=== PATIENT | male | born 1970 | race Caucasian/White ===

== ENCOUNTER 2022-04-02 01:51 | Outpatient (CLI) | payer OTHER, SELFPAY ==
[2022-04-02 09:58] LABS: Abs Immature Grans 0.01 10^3/uL (0.0-0.06); Absolute Basophil Count 0.05 10^3/uL (0.0-0.2); Absolute Eosinophil Count 0.08 10^3/uL (0.0-0.7); Absolute Lymphocyte Count 0.37 10^3/uL (1.2-3.4); Absolute Monocyte Count 0.24 10^3/uL (0.1-0.8); Absolute Neutrophil Count 3.21 10^3/uL (1.2-6.7); Basophils % 1.3; HGB 14.4 g/dL (13.5-17.5); Immature Grans % 0.3; Lymphocytes % 9.3; MCH 35.7 pg (27.0-33.0); MCV 99 fL (80-95); MPV 9.6 fL (8.0-11.0); Monocytes % 6.1; Platelet Count 149 10^3/uL (130-400); RBC 4.03 10^6/uL (4.36-5.78); RDW-SD 43.8 fL; WBC 3.96 10^3/uL (4.4-10.8)
[2022-04-02 10:23] LABS: ALT 26 U/L (16-63); AST 15 U/L (15-37); Albumin 3.7 g/dL (3.4-5.0); Alkaline Phosphatase 401 U/L (46-116); Anion Gap 4.1 mmol/L (3-11); BUN 16 mg/dL (7-18); Bilirubin, Total 1.7 mg/dL (0.2-1.0); CO2 29.9 mmol/L (21.0-32.0); CREATININE 1.2 mg/dL (0.70-1.30); Calcium 8.8 mg/dL (8.5-10.1); Chloride 106 mmol/L (98-107); Glucose 67 mg/dL (74-106); LDH 134 U/L (85-227); Potassium 4.4 mmol/L (3.5-5.1); Sodium 140 mmol/L (136-145); Total Protein 6.4 g/dL (6.4-8.2)
[2022-04-03 09:00] LABS: IgA 20 mg/dL (85-499); IgG 569 mg/dL (610-1,616); IgM <12 mg/dL (35-242)
[2022-04-08 09:35] LABS: Immunotyping, Serum (See Note)
[2022-04-08 13:03] LABS: Albumin 66.9 % (55.8-66.1); Albumin g/dL 4.1 g/dL (3.6-5.2); Comment (See Note); Total Protein 6.1 g/dL (6.3-8.2)
== END 2022-04-02 01:52 | disposition home or self-care (01) ==
PROVIDERS: Visit Provider Internal Medicine Hematology & Oncology
DX: C90.01 Multiple myeloma in remission (principal)
CPT/HCPCS: 36415; 80053; 82784; 83615; 84165; 85025; 86320

== ENCOUNTER 2022-04-09 02:43 | Outpatient (CLI) | payer OTHER, SELFPAY ==
[2022-04-09 09:26] LABS: Abs Immature Grans 0.03 10^3/uL (0.0-0.06); Absolute Basophil Count 0.02 10^3/uL (0.0-0.2); Absolute Eosinophil Count 0.18 10^3/uL (0.0-0.7); Absolute Lymphocyte Count 0.36 10^3/uL (1.2-3.4); Absolute Neutrophil Count 3.86 10^3/uL (1.2-6.7); Basophils % 0.4; Eosinophils % 3.8; HCT 38.9 % (40.0-50.0); HGB 13.8 g/dL (13.5-17.5); Immature Grans % 0.6; Lymphocytes % 7.6; MCH 34.9 pg (27.0-33.0); MCHC 35.5 % (32.0-36.0); MCV 99 fL (80-95); MPV 11.4 fL (8.0-11.0); Monocytes % 6.3; Neutrophils % 81.3; RBC 3.95 10^6/uL (4.36-5.78); RDW 11.9 % (11.8-14.1); RDW-SD 42.9 fL; WBC 4.75 10^3/uL (4.4-10.8)
[2022-04-09 09:41] LABS: ALT 26 U/L (16-63); AST 11 U/L (15-37); Albumin 3.5 g/dL (3.4-5.0); Alkaline Phosphatase 162 U/L (46-116); Anion Gap 4.4 mmol/L (3-11); BUN 16 mg/dL (7-18); Bilirubin, Total 2.1 mg/dL (0.2-1.0); CO2 30.6 mmol/L (21.0-32.0); CREATININE 1.3 mg/dL (0.70-1.30); Calcium 8.9 mg/dL (8.5-10.1); Chloride 104 mmol/L (98-107); Estimated GFR 58.67 (mL/min/1.73m2); Glucose 87 mg/dL (74-106); LDH 119 U/L (85-227); Potassium 4.4 mmol/L (3.5-5.1); Sodium 139 mmol/L (136-145); Total Protein 6.3 g/dL (6.4-8.2)
[2022-04-09 09:47] LABS: Diff Comment Diff Reviewed; Platelet Count 82 10^3/uL (130-400); RBC Morphology Normal
[2022-04-10 09:23] LABS: Kappa Free Light Chain 0.45 mg/dL (0.33-1.94); Lambda Free Light Chain <0.44 mg/dL (0.57-2.63)
[2022-04-10 09:36] LABS: IgA 17 mg/dL (85-499); IgG 539 mg/dL (610-1,616); IgM <12 mg/dL (35-242)
[2022-04-10 15:45] LABS: Albumin 65.4 % (55.8-66.1); Albumin g/dL 3.9 g/dL (3.6-5.2); Comment (See Note)
[2022-04-10 16:57] LABS: Immunotyping, Serum (See Note)
== END 2022-04-09 02:44 | disposition home or self-care (01) ==
LOC: LBO 02:43
PROVIDERS: Visit Provider Internal Medicine Hematology & Oncology
DX: C90.01 Multiple myeloma in remission (principal)
CPT/HCPCS: 36415; 80053; 82784; 86850; 86900; 86901; 83615; 83883; 84165; 85025; 86320; 86870

== ENCOUNTER 2022-04-16 03:22 | Outpatient (CLI) | payer OTHER, SELFPAY ==
[2022-04-16 08:38] LABS: Abs Immature Grans 0.03 10^3/uL (0.0-0.06); Absolute Basophil Count 0.02 10^3/uL (0.0-0.2); Absolute Eosinophil Count 0.24 10^3/uL (0.0-0.7); Absolute Lymphocyte Count 0.42 10^3/uL (1.2-3.4); Absolute Monocyte Count 0.53 10^3/uL (0.1-0.8); Absolute Neutrophil Count 2.98 10^3/uL (1.2-6.7); Basophils % 0.5; Eosinophils % 5.7; HGB 13.1 g/dL (13.5-17.5); Immature Grans % 0.7; MCH 34.7 pg (27.0-33.0); MCHC 35.4 % (32.0-36.0); MCV 98 fL (80-95); MPV 11.6 fL (8.0-11.0); Monocytes % 12.6; Neutrophils % 70.5; RBC 3.78 10^6/uL (4.36-5.78); RDW 12.2 % (11.8-14.1); RDW-SD 43.4 fL; WBC 4.22 10^3/uL (4.4-10.8)
[2022-04-16 08:53] LABS: Basophilic Stippling Present; Diff Comment Diff Reviewed; Platelet Count 80 10^3/uL (130-400)
[2022-04-16 08:56] LABS: ALT 34 U/L (16-63); AST 12 U/L (15-37); Albumin 3.4 g/dL (3.4-5.0); Alkaline Phosphatase 99 U/L (46-116); Anion Gap 4.2 mmol/L (3-11); BUN 15 mg/dL (7-18); Bilirubin, Total 1.9 mg/dL (0.2-1.0); CO2 29.8 mmol/L (21.0-32.0); CREATININE 1.2 mg/dL (0.70-1.30); Calcium 8.6 mg/dL (8.5-10.1); Chloride 108 mmol/L (98-107); Glucose 75 mg/dL (74-106); LDH 113 U/L (85-227); Magnesium 2.2 mg/dL (1.8-2.4); Potassium 4.2 mmol/L (3.5-5.1); Sodium 142 mmol/L (136-145)
[2022-04-17 09:28] LABS: IgA 15 mg/dL (85-499); IgG 497 mg/dL (610-1,616); IgM <12 mg/dL (35-242); Kappa Free Light Chain 0.46 mg/dL (0.33-1.94); Lambda Free Light Chain <0.44 mg/dL (0.57-2.63)
[2022-04-17 16:06] LABS: Albumin 67.3 % (55.8-66.1); Albumin g/dL 3.8 g/dL (3.6-5.2); Comment (See Note); Total Protein 5.7 g/dL (6.3-8.2)
[2022-04-23 10:32] LABS: Immunotyping, Serum (See Note)
== END 2022-04-16 03:23 | disposition home or self-care (01) ==
LOC: LBO 03:22
PROVIDERS: Visit Provider Internal Medicine Hematology & Oncology
DX: C90.01 Multiple myeloma in remission (principal); Z94.81 Bone marrow transplant status; M89.8X8 Other specified disorders of bone, other site
CPT/HCPCS: 36415; 80053; 82784; 83615; 83735; 83883; 84165; 85025; 86320

== ENCOUNTER 2022-08-20 02:47 | Outpatient (CLI) | payer OTHER, SELFPAY ==
[2022-08-20 13:43] LABS: Absolute Basophil Count 0.03 10^3/uL (0.0-0.2); Absolute Eosinophil Count 0.13 10^3/uL (0.0-0.7); Absolute Lymphocyte Count 0.62 10^3/uL (1.2-3.4); Absolute Monocyte Count 0.37 10^3/uL (0.1-0.8); Absolute Neutrophil Count 1.89 10^3/uL (1.2-6.7); Eosinophils % 4.3; HCT 36.6 % (40.0-50.0); HGB 13.1 g/dL (13.5-17.5); Lymphocytes % 20.4; MCHC 35.8 % (32.0-36.0); MCV 103 fL (80-95); Monocytes % 12.2; Neutrophils % 62.1; Platelet Count 122 10^3/uL (130-400); RBC 3.54 10^6/uL (4.36-5.78); RDW 12.8 % (11.8-14.1); RDW-SD 49.3 fL; WBC 3.04 10^3/uL (4.4-10.8)
[2022-08-20 13:53] LABS: ALT 23 U/L (16-63); AST 18 U/L (15-37); Albumin 3.7 g/dL (3.4-5.0); Alkaline Phosphatase 61 U/L (46-116); Anion Gap 5.5 mmol/L (3-11); BUN 17 mg/dL (7-18); Bilirubin, Total 2.1 mg/dL (0.2-1.0); CO2 30.5 mmol/L (21.0-32.0); CREATININE 1.3 mg/dL (0.70-1.30); Calcium 8.7 mg/dL (8.5-10.1); Chloride 107 mmol/L (98-107); Estimated GFR 67.34 (mL/min/1.73m2); Glucose 72 mg/dL (74-106); Potassium 3.6 mmol/L (3.5-5.1); Sodium 143 mmol/L (136-145); Total Protein 6.3 g/dL (6.4-8.2)
[2022-08-21 10:14] LABS: IgA 35 mg/dL (85-499); IgG 408 mg/dL (610-1616); IgM <12 mg/dL (35-242); Kappa Free Light Chain 0.73 mg/dL (0.33-1.94); Lambda Free Light Chain <0.44 mg/dL (0.57-2.63)
[2022-08-22 14:48] LABS: Albumin 69.3 % (55.8-66.1); Comment (See Note); Total Protein 5.7 g/dL (6.3-8.2)
[2022-08-22 16:33] LABS: Immunotyping, Serum (See Note)
== END 2022-08-20 02:48 | disposition home or self-care (01) ==
LOC: LBO 02:47
PROVIDERS: Visit Provider Nurse Practitioner Adult Health
DX: C90.01 Multiple myeloma in remission (principal)
CPT/HCPCS: 36415; 80053; 82784; 83883; 84165; 85025; 86320

== ENCOUNTER 2023-03-18 12:32 | Outpatient (CLI) | payer OTHER, SELFPAY ==
[2023-03-18 11:08] LABS: Abs Immature Grans 0.01 10^3/uL (0.0-0.06); Absolute Basophil Count 0.03 10^3/uL (0.0-0.2); Absolute Eosinophil Count 0.08 10^3/uL (0.0-0.7); Absolute Lymphocyte Count 0.82 10^3/uL (1.2-3.4); Absolute Monocyte Count 0.35 10^3/uL (0.1-0.8); Absolute Neutrophil Count 1.89 10^3/uL (1.2-6.7); Basophils % 0.9; Eosinophils % 2.5; HCT 39.3 % (40.0-50.0); HGB 14.2 g/dL (13.5-17.5); Immature Grans % 0.3; Lymphocytes % 25.8; MCH 36.2 pg (27.0-33.0); MCHC 36.1 % (32.0-36.0); MCV 100 fL (80-95); MPV 9.9 fL (8.0-11.0); Neutrophils % 59.5; Platelet Count 124 10^3/uL (130-400); RBC 3.92 10^6/uL (4.36-5.78); RDW 12.8 % (11.8-14.1); RDW-SD 47.4 fL; WBC 3.18 10^3/uL (4.4-10.8)
[2023-03-18 11:28] LABS: ALT 34 U/L (16-63); AST 16 U/L (15-37); Albumin 3.5 g/dL (3.4-5.0); Alkaline Phosphatase 62 U/L (46-116); Anion Gap 4.9 mmol/L (3-11); BUN 17 mg/dL (7-18); Bilirubin, Total 2.2 mg/dL (0.2-1.0); CO2 29.1 mmol/L (21.0-32.0); CREATININE 1.1 mg/dL (0.70-1.30); Calcium 8.8 mg/dL (8.5-10.1); Chloride 108 mmol/L (98-107); Estimated GFR 81.78 (mL/min/1.73m2); Glucose 104 mg/dL (74-106); Potassium 4.1 mmol/L (3.5-5.1); Sodium 142 mmol/L (136-145); Total Protein 6.2 g/dL (6.4-8.2)
[2023-03-19 09:34] LABS: IgA 69 mg/dL (85-499); IgG 464 mg/dL (610-1616); IgM <12 mg/dL (35-242); Kappa Free Light Chain 0.61 mg/dL (0.33-1.94); Lambda Free Light Chain <0.44 mg/dL (0.57-2.63)
[2023-03-19 14:57] LABS: Albumin 67.8 % (55.8-66.1); Albumin g/dL 3.9 g/dL (3.6-5.2); Comment (See Note); Total Protein 5.8 g/dL (6.3-8.2)
[2023-03-19 16:28] LABS: Immunotyping, Serum (See Note)
== END 2023-03-18 12:33 | disposition home or self-care (01) ==
LOC: LBO 12:32
PROVIDERS: Visit Provider Nurse Practitioner Adult Health
DX: C90.01 Multiple myeloma in remission (principal)
CPT/HCPCS: 36415; 80053; 82784; 83883; 84165; 85025; 86320

== ENCOUNTER 2023-04-01 13:54 | Outpatient (CLI) | payer OTHER, SELFPAY ==
[2023-04-01 13:56] LABS: Abs Immature Grans 0.02 10^3/uL (0.0-0.06); Absolute Basophil Count 0.03 10^3/uL (0.0-0.2); Absolute Eosinophil Count 0.16 10^3/uL (0.0-0.7); Absolute Monocyte Count 0.74 10^3/uL (0.1-0.8); Absolute Neutrophil Count 4.33 10^3/uL (1.2-6.7); Basophils % 0.5; Eosinophils % 2.6; HCT 38.7 % (40.0-50.0); HGB 13.7 g/dL (13.5-17.5); Immature Grans % 0.3; Lymphocytes % 14.6; MCH 35.5 pg (27.0-33.0); MCHC 35.4 % (32.0-36.0); MCV 100 fL (80-95); MPV 10.2 fL (8.0-11.0); Platelet Count 118 10^3/uL (130-400); RBC 3.86 10^6/uL (4.36-5.78); RDW 12.3 % (11.8-14.1); RDW-SD 45.5 fL; WBC 6.18 10^3/uL (4.4-10.8)
[2023-04-01 14:23] LABS: ALT 50 U/L (16-63); AST 22 U/L (15-37); Albumin 3.5 g/dL (3.4-5.0); Alkaline Phosphatase 73 U/L (46-116); Anion Gap 7.5 mmol/L (3-11); BUN 11 mg/dL (7-18); Bilirubin, Total 1.6 mg/dL (0.2-1.0); CO2 27.5 mmol/L (21.0-32.0); CREATININE 1.1 mg/dL (0.70-1.30); Chloride 106 mmol/L (98-107); Estimated GFR 81.78 (mL/min/1.73m2); Glucose 95 mg/dL (74-106); Potassium 3.9 mmol/L (3.5-5.1); Sodium 141 mmol/L (136-145); Total Protein 6.3 g/dL (6.4-8.2)
[2023-04-03 10:10] LABS: IgA 60 mg/dL (85-499); IgG 425 mg/dL (610-1616); IgM <12 mg/dL (35-242); Kappa Free Light Chain 0.73 mg/dL (0.33-1.94); Lambda Free Light Chain <0.44 mg/dL (0.57-2.63)
[2023-04-03 14:49] LABS: Albumin 66.1 % (55.8-66.1); Albumin g/dL 3.9 g/dL (3.6-5.2); Total Protein 5.9 g/dL (6.3-8.2)
== END 2023-04-01 13:55 | disposition home or self-care (01) ==
LOC: LBO 13:57
PROVIDERS: Visit Provider Nurse Practitioner Adult Health
DX: C90.01 Multiple myeloma in remission (principal)
CPT/HCPCS: 36415; 80053; 82784; 83883; 84165; 85025

== ENCOUNTER 2023-04-15 09:40 | Outpatient (CLI) | payer OTHER, SELFPAY ==
[2023-04-15 09:37] LABS: Abs Immature Grans 0.01 10^3/uL (0.0-0.06); Absolute Basophil Count 0.04 10^3/uL (0.0-0.2); Absolute Eosinophil Count 0.09 10^3/uL (0.0-0.7); Absolute Lymphocyte Count 1.06 10^3/uL (1.2-3.4); Absolute Monocyte Count 0.35 10^3/uL (0.1-0.8); Absolute Neutrophil Count 2.59 10^3/uL (1.2-6.7); Eosinophils % 2.2; HGB 15.4 g/dL (13.5-17.5); Immature Grans % 0.2; Lymphocytes % 25.6; MCH 36.3 pg (27.0-33.0); MCHC 36.7 % (32.0-36.0); MCV 99 fL (80-95); MPV 10.1 fL (8.0-11.0); Monocytes % 8.5; Neutrophils % 62.5; Platelet Count 145 10^3/uL (130-400); RBC 4.24 10^6/uL (4.36-5.78); RDW 12.7 % (11.8-14.1); RDW-SD 45.8 fL; WBC 4.14 10^3/uL (4.4-10.8)
[2023-04-15 09:52] LABS: ALT 31 U/L (16-63); AST 16 U/L (15-37); Albumin 3.7 g/dL (3.4-5.0); Alkaline Phosphatase 64 U/L (46-116); BUN 20 mg/dL (7-18); Bilirubin, Total 2.1 mg/dL (0.2-1.0); CREATININE 1.3 mg/dL (0.70-1.30); Calcium 9.3 mg/dL (8.5-10.1); Chloride 106 mmol/L (98-107); Estimated GFR 66.93 (mL/min/1.73m2); Glucose 68 mg/dL (74-106); Potassium 4.1 mmol/L (3.5-5.1); Sodium 143 mmol/L (136-145); Total Protein 6.2 g/dL (6.4-8.2)
[2023-04-16 10:41] LABS: IgA 66 mg/dL (85-499); IgG 476 mg/dL (610-1616); IgM <12 mg/dL (35-242); Kappa Free Light Chain 0.77 mg/dL (0.33-1.94); Lambda Free Light Chain <0.44 mg/dL (0.57-2.63)
[2023-04-16 13:54] LABS: Albumin g/dL 4.1 g/dL (3.6-5.2); Total Protein 6.1 g/dL (6.3-8.2)
== END 2023-04-15 09:41 | disposition home or self-care (01) ==
LOC: LBO 09:40
PROVIDERS: Visit Provider Nurse Practitioner Adult Health
DX: C90.01 Multiple myeloma in remission (principal)
CPT/HCPCS: 36415; 80053; 82784; 83883; 84165; 85025

== ENCOUNTER 2023-04-29 14:18 | Outpatient (CLI) | payer OTHER, SELFPAY ==
[2023-04-29 13:55] LABS: Abs Immature Grans 0.02 10^3/uL (0.0-0.06); Absolute Basophil Count 0.02 10^3/uL (0.0-0.2); Absolute Eosinophil Count 0.15 10^3/uL (0.0-0.7); Absolute Lymphocyte Count 0.77 10^3/uL (1.2-3.4); Absolute Monocyte Count 0.52 10^3/uL (0.1-0.8); Absolute Neutrophil Count 3.98 10^3/uL (1.2-6.7); Basophils % 0.4; Eosinophils % 2.7; HGB 14.3 g/dL (13.5-17.5); Immature Grans % 0.4; Lymphocytes % 14.1; MCH 35.3 pg (27.0-33.0); MCHC 34.9 % (32.0-36.0); MCV 101 fL (80-95); MPV 10.8 fL (8.0-11.0); Monocytes % 9.5; Neutrophils % 72.9; Platelet Count 119 10^3/uL (130-400); RBC 4.05 10^6/uL (4.36-5.78); RDW 12.5 % (11.8-14.1); RDW-SD 46.9 fL; WBC 5.46 10^3/uL (4.4-10.8)
[2023-04-29 14:10] LABS: ALT 31 U/L (16-63); AST 12 U/L (15-37); Albumin 3.5 g/dL (3.4-5.0); Alkaline Phosphatase 64 U/L (46-116); Anion Gap 5.4 mmol/L (3-11); BUN 13 mg/dL (7-18); Bilirubin, Total 1.8 mg/dL (0.2-1.0); CO2 31.6 mmol/L (21.0-32.0); CREATININE 1.3 mg/dL (0.70-1.30); Calcium 8.6 mg/dL (8.5-10.1); Chloride 107 mmol/L (98-107); Estimated GFR 66.93 (mL/min/1.73m2); Glucose 63 mg/dL (74-106); Potassium 3.8 mmol/L (3.5-5.1); Sodium 144 mmol/L (136-145); Total Protein 6.1 g/dL (6.4-8.2)
[2023-04-30 09:59] LABS: IgA 64 mg/dL (85-499); IgG 452 mg/dL (610-1616); IgM 23 mg/dL (35-242); Kappa Free Light Chain 0.91 mg/dL (0.33-1.94); Lambda Free Light Chain <0.44 mg/dL (0.57-2.63)
[2023-04-30 13:45] LABS: Albumin g/dL 4.1 g/dL (3.6-5.2)
== END 2023-04-29 14:19 | disposition home or self-care (01) ==
LOC: LBO 14:19
PROVIDERS: Visit Provider Nurse Practitioner Adult Health
DX: C90.01 Multiple myeloma in remission (principal)
CPT/HCPCS: 36415; 80053; 82784; 83883; 84165; 85025

== ENCOUNTER 2023-09-30 10:27 | Outpatient (CLI) | payer OTHER, SELFPAY ==
[2023-09-30 10:06] LABS: Abs Immature Grans 0.01 10^3/uL (0.0-0.06); Absolute Basophil Count 0.03 10^3/uL (0.0-0.2); Absolute Lymphocyte Count 1.07 10^3/uL (1.2-3.4); Absolute Monocyte Count 0.29 10^3/uL (0.1-0.8); Absolute Neutrophil Count 1.87 10^3/uL (1.2-6.7); Basophils % 0.9; HCT 39.7 % (40.0-50.0); HGB 14.1 g/dL (13.5-17.5); Immature Grans % 0.3; Lymphocytes % 31.8; MCHC 35.5 % (32.0-36.0); MCV 99 fL (80-95); MPV 9.6 fL (8.0-11.0); Monocytes % 8.6; Neutrophils % 55.4; Platelet Count 142 10^3/uL (130-400); RBC 4.03 10^6/uL (4.36-5.78); RDW 12.6 % (11.8-14.1); RDW-SD 45.5 fL; WBC 3.37 10^3/uL (4.4-10.8)
[2023-09-30 10:25] LABS: ALT 35 U/L (16-63); AST 16 U/L (15-37); Albumin 3.4 g/dL (3.4-5.0); Alkaline Phosphatase 65 U/L (46-116); Anion Gap 6.6 mmol/L (3-11); BUN 17 mg/dL (7-18); Bilirubin, Total 1.9 mg/dL (0.2-1.0); CO2 29.4 mmol/L (21.0-32.0); CREATININE 1.3 mg/dL (0.70-1.30); Calcium 8.9 mg/dL (8.5-10.1); Chloride 107 mmol/L (98-107); Estimated GFR 66.51 (mL/min/1.73m2); Glucose 79 mg/dL (74-106); LDH 122 U/L (85-227); Potassium 4.1 mmol/L (3.5-5.1); Sodium 143 mmol/L (136-145); Total Protein 6.5 g/dL (6.4-8.2)
[2023-10-01 08:33] LABS: IgA 120 mg/dL (85-499); IgG 817 mg/dL (610-1616); IgM 27 mg/dL (35-242); Kappa Free Light Chain 1.78 mg/dL (0.33-1.94); Lambda Free Light Chain 1.95 mg/dL (0.57-2.63)
[2023-10-02 14:51] LABS: Albumin 62.2 % (55.8-66.1); Albumin g/dL 3.9 g/dL (3.6-5.2); Comment (See Note); Total Protein 6.2 g/dL (6.3-8.2)
[2023-10-02 15:40] LABS: Immunotyping, Serum (See Note)
== END 2023-09-30 10:28 | disposition home or self-care (01) ==
LOC: LBO 10:27
PROVIDERS: Internal Medicine Hematology & Oncology; Visit Provider Nurse Practitioner Adult Health
DX: C90.01 Multiple myeloma in remission (principal); M89.8X8 Other specified disorders of bone, other site
CPT/HCPCS: 36415; 80053; 82784; 83615; 83883; 84165; 85025; 86320

== ENCOUNTER 2024-10-06 04:08 | Outpatient (CLI) | payer OTHER, SELFPAY ==
[2024-10-06 08:36] LABS: Abs Immature Grans 0.02 10^3/uL (0.0-0.06); Absolute Basophil Count 0.02 10^3/uL (0.0-0.2); Absolute Eosinophil Count 0.17 10^3/uL (0.0-0.7); Absolute Lymphocyte Count 0.82 10^3/uL (1.2-3.4); Absolute Monocyte Count 0.51 10^3/uL (0.1-0.8); Absolute Neutrophil Count 2.98 10^3/uL (1.2-6.7); Basophils % 0.4 %; Eosinophils % 3.8 %; HCT 40.1 % (40.0-50.0); HGB 14.1 g/dL (13.5-17.5); Immature Grans % 0.4 %; Lymphocytes % 18.1 %; MCH 35.6 pg (27.0-33.0); MCHC 35.2 % (32.0-36.0); MCV 101 fL (80-95); MPV 10.7 fL (8.0-11.0); Monocytes % 11.3 %; Platelet Count 104 10^3/uL (130-400); RBC 3.96 10^6/uL (4.36-5.78); RDW 12.6 % (11.8-14.1); RDW-SD 47.3 fL; WBC 4.52 10^3/uL (4.4-10.8)
[2024-10-06 09:07] LABS: ALT 55 U/L (16-63); AST 24 U/L (15-37); Albumin 3.2 g/dL (3.4-5.0); Alkaline Phosphatase 78 U/L (46-116); Anion Gap 6.6 mmol/L (3-11); BUN 19 mg/dL (7-18); Bilirubin, Total 1.89 mg/dL (0.2-1.0); CO2 29.4 mmol/L (21.0-32.0); CREATININE 1.2 mg/dL (0.70-1.30); Calcium 8.8 mg/dL (8.5-10.1); Chloride 108 mmol/L (98-107); Estimated GFR 72.76 (mL/min/1.73m2); Ferritin 445 ng/mL (26-388); Glucose 78 mg/dL (74-106); Potassium 3.9 mmol/L (3.5-5.1); Sodium 144 mmol/L (136-145); Total Protein 6.1 g/dL (6.4-8.2)
[2024-10-07 09:57] LABS: IgA 87 mg/dL (85-499); IgG 605 mg/dL (610-1616); IgM <12 mg/dL (35-242)
[2024-10-10 14:29] LABS: Albumin 66.1 % (55.8-66.1); Albumin g/dL 3.8 g/dL (3.6-5.2); Comment (See Note); Total Protein 5.7 g/dL (6.3-8.2)
[2024-10-10 16:12] LABS: Immunotyping, Serum (See Note)
== END 2024-10-06 04:09 | disposition home or self-care (01) ==
LOC: LBO 04:09
PROVIDERS: Visit Provider Nurse Practitioner Adult Health
DX: C90.01 Multiple myeloma in remission (principal)
CPT/HCPCS: 36415; 80053; 82784; 82728; 84165; 85025; 86320

== ENCOUNTER 2025-10-04 02:35 | Outpatient (CLI) | payer OTHER, SELFPAY ==
[2025-10-04 08:58] LABS: Abs Immature Grans 0.01 10^3/uL (0.0-0.06); HCT 39.4 % (40.0-50.0); HGB 14.2 g/dL (13.5-17.5); Immature Grans % 0.2 %; MCH 35.9 pg (27.0-33.0); MCHC 36.0 % (32.0-36.0); MCV 100 fL (80-95); MPV 10.8 fL (8.0-11.0); Platelet Count 120 10^3/uL (130-400); RBC 3.95 10^6/uL (4.36-5.78); RDW 12.6 % (11.8-14.1); RDW-SD 46.1 fL; WBC 4.40 10^3/uL (4.4-10.8)
[2025-10-04 09:15] LABS: ALT 34 U/L (10-49); AST 22 U/L (<34); Albumin 3.8 g/dL (3.2-5.0); Alkaline Phosphatase 68 U/L (46-116); Anion Gap 7.8 mmol/L (3-11); BUN 15 mg/dL (9-23); Bilirubin, Total 2.6 mg/dL (0.2-1.2); CO2 26.2 mmol/L (20.0-31.0); Calcium 8.2 mg/dL (8.3-10.6); Chloride 110 mmol/L (98-107); Glucose 81 mg/dL (74-106); Potassium 3.7 mmol/L (3.5-5.1); Sodium 144 mmol/L (136-145); Total Protein 5.9 g/dL (5.7-8.2)
[2025-10-05 09:52] LABS: Kappa Free Light Chain 1.16 mg/dL (0.33-1.94); Lambda Free Light Chain 0.79 mg/dL (0.57-2.63)
[2025-10-06 12:39] LABS: Albumin 62.9 % (55.8-66.1); Albumin g/dL 3.6 g/dL (3.6-5.2); Alpha 1 g/dL 0.30 g/dL (0.15-0.40); Alpha 2 g/dL 0.60 g/dL (0.50-1.00); Beta g/dL 0.70 g/dL (0.60-1.20); Gamma g/dL 0.60 g/dL (0.60-1.60); Total Protein 5.8 g/dL (6.3-8.2)
== END 2025-10-04 02:36 | disposition home or self-care (01) ==
LOC: LBO 02:35
PROVIDERS: Visit Provider Nurse Practitioner Adult Health
DX: C90.01 Multiple myeloma in remission (principal)
CPT/HCPCS: 36415; 80053; 82784; 83883; 84165; 85025